=== PATIENT | male | born 1950 | race African-American/Black ===

== ENCOUNTER 2018-03-21 20:29 | Inpatient (IN) | payer MEDICARE, MEDICAID ==
[~2018-03-21] VITALS: Ht 177.8 cm; Wt 86.5 kg
[~2018-03-21 20:29] MED LIST: AMLO10TA12 PO; CYCL1TAB18 PO; GABA-339 PO; HYDR-4072 PO; IPRIH IN; LACT10SO66 PO; LEVO500T21 PO; LISI10TA6 PO; METO25TA62 PO; NIC21P TOP; PANT40TA2 PO
[2018-03-21 21:35] LABS: Urine WBC None Seen /hpf (0 - 3)
[2018-03-21 21:51] LABS: Urine Bacteria FEW /hpf (None Seen); Urine Blood Negative /uL (Negative); Urine Specific Gravity 1.004 (1.001-1.035)
[2018-03-21 22:05] LABS: Basophils # (auto) 0.1 uL; Eosinophils # (auto) 0 uL; Hemoglobin 11.9 g/dL (13.5-17.5); Nucleated Red Blood Cells % 0.2 %
[2018-03-21 22:07] LABS: Basophils % (auto) 2.7 % (0.0-2.0); Eosinophils % (auto) 1.1 % (0.0-7.0); Hematocrit 33.9 % (41.0-53.0); Lymphocytes % (auto) 24.9 % (10.0-50.0); Mean Corpuscular Hemoglobin 38.2 pg (28.0-32.0); Mean Corpuscular Hgb Conc. 35.1 g/dL (32.0-36.0); Monocytes # (auto) 0.3 uL; Monocytes % (auto) 7.8 % (0.0-12.0); Neutrophils # (auto) 2.5 uL; Neutrophils % (auto) 63.5 % (37.0-80.0); Platelet Count (auto) 148 10^3/uL (140-450); Red Blood Cells 3.11 10^6/uL (4.5-5.90); Red Cell Distribution Width 16.9 % (11.8-14.3); White Blood Cell 3.9 10^3/uL (4.4-10.8)
[2018-03-21] MEDS ORDERED: D5W/SOD CHL 0.45% 1,000 ML IV ONE (22:30)
[2018-03-21] MEDS ORDERED: DEXTROSE (50%) 50ML SYRG IV ONE (22:30)
[2018-03-21 23:04] LABS: Amphetamine Screen, Urine NEGATIVE (NEGATIVE); Barbiturate Scree,Urine NEGATIVE (NEGATIVE); Benzodiazephine Screen, Urine NEGATIVE (NEGATIVE); Cannabinoid Screen, Urine POSITIVE (NEGATIVE); Cocaine Screen, Urine NEGATIVE (NEGATIVE); Opiate Scree,Urine NEGATIVE (NEGATIVE); Phencyclidine Screen, Urine NEGATIVE (NEGATIVE)
[2018-03-21 23:26] LABS: Albumin 1.8 g/dL (3.4-5.0); BUN/Creatinine Ratio 6.9; Calcium 7.2 mg/dL (8.5-10.1)
[2018-03-21 23:29] LABS: Bilirubin, Total 1.5 mg/dL (0.2-1.0); Total Protein 7.1 g/dL (6.4-8.2)
[2018-03-22] MEDS ORDERED: DEXTROSE (50%) 50ML SYRG IV ONE (01:45)
[2018-03-22] MEDS ORDERED: MAGNESIUM SULFATE 1GM/100ML 100 ML IV ONE (02:15)
[2018-03-22] MEDS ORDERED: THIAMINE 100mg/ml INJ (200mg/2ml VIAL) IV ONE (02:15)
[2018-03-22] MEDS ORDERED: MVI in SODIUM CHLORIDE 0.9% 1,010 ML ONE (02:17)
[2018-03-22] MEDS ORDERED: D5W/SOD CHLO 0.9% 1,000 ML IV ONE (02:30)
[2018-03-22] MEDS ORDERED: THIAMINE HCL 100 MG TAB PO ONE (02:30)
[2018-03-22] MEDS ORDERED: DEXTROSE 10% 1,000 ML IV ONE (03:00)
[2018-03-22] MEDS ORDERED: TEMAZEPAM 15 MG CAP PO PRN (03:15)
[2018-03-22] MEDS ORDERED: ACETAMINOPHEN 500 MG TAB PO PRN (03:15)
[2018-03-22] MEDS ORDERED: ALBUTEROL SULF 2.5 MG/0.5ML(0.5%) NEB SOLN NEB PRN (03:15)
[2018-03-22] MEDS ORDERED: IPRATROPIUM BROM 0.5 MG/2.5ML INH SOL NEB PRN (03:15)
[2018-03-22] MEDS ORDERED: ONDANSETRON HCL 4 MG/2 ML VIAL IV PRN (03:15)
[2018-03-22 05:22] LABS: Basophils # (auto) 0 uL; Eosinophils # (auto) 0.1 uL; Hemoglobin 11.6 g/dL (13.5-17.5); Lymphocytes # (auto) 1.4 uL; Mean Corpuscular Volume 108.6 fL (80.0-100.0); Monocytes # (auto) 0.5 uL
[2018-03-22 05:24] LABS: Basophils % (auto) 0.8 % (0.0-2.0); Eosinophils % (auto) 1.9 % (0.0-7.0); Lymphocytes % (auto) 32.7 % (10.0-50.0); Mean Corpuscular Hemoglobin 38.2 pg (28.0-32.0); Mean Corpuscular Hgb Conc. 35.1 g/dL (32.0-36.0); Monocytes % (auto) 12.5 % (0.0-12.0); Neutrophils # (auto) 2.2 uL; Neutrophils % (auto) 52.1 % (37.0-80.0); Nucleated Red Blood Cells % 0.3 %; Platelet Count (auto) 82 10^3/uL (140-450); Red Blood Cells 3.03 10^6/uL (4.5-5.90); Red Cell Distribution Width 16.4 % (11.8-14.3); White Blood Cell 4.2 10^3/uL (4.4-10.8)
[2018-03-22 05:39] LABS: Calcium 7.5 mg/dL (8.5-10.1); Potassium 3.8 mmol/L (3.5-5.1)
[2018-03-22 05:43] LABS: BUN/Creatinine Ratio 9.8
[2018-03-22] MEDS: GABAPENTIN 400 MG CAP PO SCH ×3 (06:15→21:54)
[2018-03-22] MEDS: HYDROcodone-ACET 5/325MG TAB PO PRN ×3 (06:15→21:55)
--- NOTE | 2018-03-22 07:10 | NUR ---
PT. ASSESSED FOR PRN. MN. TX., NO RESP. DISTRESS OR SOB NOTED. PT. IS RESTING ,BS. ARE CLEAR,HR=82,RR=20,SP02=99% ON RA. PRN. TX. NOT INDICATED AT THIS TIME. PT. INSTRUCTED TO CALL IF NEEDED.
[2018-03-22] MEDS: NICOTINE 14 MG/24HR TOPICAL PATCH TD SCH (10:00)
[2018-03-22] MEDS: PANTOPRAZOLE 40 MG TAB PO SCH (10:12)
[2018-03-22] MEDS: amLODIPine BESYLATE 5 MG TAB PO SCH (10:13)
[2018-03-22] MEDS: LISINOPRIL 10 MG TAB PO SCH (10:13)
[2018-03-22] MEDS: METOPROLOL SUCCINATE XL 50 MG TAB PO SCH (10:14)
[2018-03-22] MEDS ORDERED: MULTIPLE VITAMIN IV SCH (12:00)
[2018-03-22] MEDS ORDERED: MAGNESIUM SULF IV SCH (12:00)
[2018-03-22] MEDS ORDERED: D5W 5% IV SCH (12:00)
[2018-03-22] MEDS ORDERED: MULTIPLE VITAMINS W/ MINERALS TAB PO ONE (15:30)
[2018-03-22] MEDS: ACCU-CHEK COMFORT CURVE STRIP VI SCH ×2 (17:50→22:56)
--- NOTE | 2018-03-22 18:38 | NUR ---
MS admit from ER GALI OSHEA admitted to [facility] unit after SBAR received. Patient oriented to Abi Rust, primary RN, unit, room, bed, and unit policies regarding patient care and visiting hours. weighed by bedscale and encouraged to call if they need something. All questions and concerns addressed, patient verbalized understanding. Note:
--- NOTE | 2018-03-22 20:15 | NUR ---
Opening Shift Note: A&Ox4, resting in bed. Room air, pain 10/10 generalized, and ambulates at baseline with a cane; currently SBA without an assistive device. Bed locked in lowest position, side rails up x3, and call light within reach. IV 20 g in right forearm IID inserted on 03/22/18. Skin intact; discoloration to chest and bilateral feel flaky and dry. POC discussed and questions answered. Will continue to round prn.
[2018-03-22 20:43] VITALS: BP 144/76
[2018-03-22 22:00] VITALS: BP 104/62
[2018-03-23] MEDS: ACCU-CHEK COMFORT CURVE STRIP VI SCH ×4 (02:00→21:02)
[2018-03-23] MEDS: HYDROcodone-ACET 5/325MG TAB PO PRN ×5 (02:38→21:01)
[2018-03-23 05:11] VITALS: BP 116/69
[2018-03-23] MEDS: GABAPENTIN 400 MG CAP PO SCH ×3 (06:02→21:02)
[2018-03-23 06:35] LABS: Basophils # (auto) 0 uL; Eosinophils # (auto) 0.1 uL; Monocytes # (auto) 0.4 uL; Neutrophils # (auto) 1.9 uL; Red Blood Cells 3.14 10^6/uL (4.5-5.90)
[2018-03-23 06:38] LABS: Basophils % (auto) 1.1 % (0.0-2.0); Eosinophils % (auto) 2.8 % (0.0-7.0); Hematocrit 34.3 % (41.0-53.0); Hemoglobin 11.8 g/dL (13.5-17.5); Lymphocytes # (auto) 1.3 uL; Mean Corpuscular Hemoglobin 37.6 pg (28.0-32.0); Mean Corpuscular Hgb Conc. 34.5 g/dL (32.0-36.0); Mean Corpuscular Volume 109.1 fL (80.0-100.0); Monocytes % (auto) 11.6 % (0.0-12.0); Neutrophils % (auto) 50.5 % (37.0-80.0); Nucleated Red Blood Cells % 0.3 %; Platelet Count (auto) 94 10^3/uL (140-450); Red Cell Distribution Width 16.8 % (11.8-14.3); White Blood Cell 3.8 10^3/uL (4.4-10.8)
[2018-03-23 06:50] LABS: BUN/Creatinine Ratio 10.1; Calcium 7.4 mg/dL (8.5-10.1); Potassium 4.2 mmol/L (3.5-5.1)
--- NOTE | 2018-03-23 08:15 | NUR ---
Update: A&Ox4, resting in bed. Room air, pain level 8/-10 chronic generalized pain, and ambulates SBA. Bed locked in lowest position, side rails up x2, and call light within reach. IV 20 g in right forearm IID inserted on 03/22/18. Skin intact: redness to chest and dry flaky feet. POC discussed and questions answered. Will continue to round prn.
--- NOTE | 2018-03-23 09:33 | NUR ---
Respiratory note: PT ASSESSED FOR PRN MN TX. HR 60, RR 14, POX 100% ON RA. BREATH SOUNDS CLEAR. NO RESPIRATORY DISTRESS NOTED. PRN NOT INDICATED, NO TX GIVEN AT THIS TIME.
[2018-03-23 10:02] VITALS: BP 121/71
[2018-03-23] MEDS: MULTIPLE VITAMINS W/ MINERALS TAB PO SCH (10:29)
[2018-03-23] MEDS: THIAMINE HCL 100 MG TAB PO SCH (10:29)
[2018-03-23] MEDS: LISINOPRIL 10 MG TAB PO SCH (10:30)
[2018-03-23] MEDS: amLODIPine BESYLATE 5 MG TAB PO SCH (10:30)
[2018-03-23] MEDS: PANTOPRAZOLE 40 MG TAB PO SCH (10:30)
[2018-03-23] MEDS: METOPROLOL SUCCINATE XL 50 MG TAB PO SCH (10:30)
[2018-03-23] MEDS: NICOTINE 14 MG/24HR TOPICAL PATCH TD SCH (10:31)
--- NOTE | 2018-03-23 12:45 | NUR ---
Page sent to PT to assist patient with ambulation per physician.
--- NOTE | 2018-03-23 13:00 | NUR ---
Per Dr. Man, patient ACCU check will change from Q4H to Q6H with no insulin coverage related to hypoglycemia.
--- NOTE | 2018-03-23 14:48 | NUR ---
Received report from HARMONY Prajapati and assumed care of patient.
[2018-03-23 15:17] VITALS: BP 105/60
[2018-03-23 17:00] VITALS: BP 134/70
--- NOTE | 2018-03-23 19:30 | NUR ---
Seen visited by family. Instructed patient's son Maury to call us back re: patient's medication list and verbalized understanding. Call back number provided to him.
--- NOTE | 2018-03-23 21:01 | NUR ---
Pain assessment: Patient called c/o pain in his bilateral knees. Pain scale 9/10. Will medicate patient for pain.
[2018-03-23 22:00] VITALS: BP 120/47
--- NOTE | 2018-03-23 22:01 | NUR ---
Pain re-assessment: Patient stated pain slightly relieved in his bilateral knees. Will continue to monitor.
--- NOTE | 2018-03-24 00:01 | NUR ---
PT SEEN RESTING IN BED ON RA, SPO2 100, BS CLEAR, NO SOB, NO PRN NEB TX INDICATED AT THIS TIME.
[2018-03-24] MEDS: ACCU-CHEK COMFORT CURVE STRIP VI SCH ×4 (03:34→18:00)
[2018-03-24 05:00] VITALS: BP 91/50
--- NOTE | 2018-03-24 07:24 | NUR ---
Respiratory note: PT ASSESSED FOR PRN TX. HR 64, RR 14, POX 98% ON RA. BREATH SOUNDS CLEAR DIMINISHED BILATERALLY. NO RESPIRATORY DISTRESS NOTED. PRN TX NOT GIVEN, NOT INDICATED AT THIS TIME.
[2018-03-24] MEDS: GABAPENTIN 400 MG CAP PO SCH ×2 (07:36→14:00)
--- NOTE | 2018-03-24 08:00 | NUR ---
RECEIVED PATIENT ALERT AND ORIENTED, NOT IN DISTRESS, RESTING AND SLEEPING ON BED, HEAD OF BED ELEVATED, BED ON LOW POSITION, RAILS UP X2, CALL LIGHT ON REACH, WILL CONTINUE MONITORING.
[2018-03-24 09:00] VITALS: BP 125/72
[2018-03-24] MEDS: LISINOPRIL 10 MG TAB PO SCH (10:27)
[2018-03-24] MEDS: PANTOPRAZOLE 40 MG TAB PO SCH (10:28)
[2018-03-24] MEDS: THIAMINE HCL 100 MG TAB PO SCH (10:28)
[2018-03-24] MEDS: amLODIPine BESYLATE 5 MG TAB PO SCH (10:28)
[2018-03-24] MEDS: METOPROLOL SUCCINATE XL 50 MG TAB PO SCH (10:29)
[2018-03-24] MEDS: NICOTINE 14 MG/24HR TOPICAL PATCH TD SCH (10:29)
[2018-03-24] MEDS: MULTIPLE VITAMINS W/ MINERALS TAB PO SCH (10:29)
--- NOTE | 2018-03-24 11:40 | NUR ---
NOT IN DISTRESS, RESTING ON BED, REPORT WAS GIVEN TO GOSIA ANTUNEZ.
--- NOTE | 2018-03-24 11:42 | NUR ---
Received Report Received report from Baron ANTUNEZ. Assumed care of patient, awake and alert resting in bed. Patient is 2 L NC with even and unlabored respirations. No S/S of distress/SOB or pain at this time. Bed is in lowest position, wheels are locked, side rails up x2, and call light is within reach. Instructed on POC and to call for assist PRN, will continue to monitor for changes Q1hr and PRN.
--- NOTE | 2018-03-24 12:15 | NUR ---
DR. MARIO AT BEDSIDE AT BEDSIDE EVALUATING PATIENT. D/C ORDER RECEIVED. WILL CALL SON TO INFORM PATIENT NEEDS TO BE PICKED UP. WILL CONTINUE TO MONITOR Q1H AND PRN.
--- NOTE | 2018-03-24 12:40 | NUR ---
CALLED PATIENT'S SON CALLED AND SPOKE WITH PATIENT'S SON, KATE. INFORMED HIM THAT PATIENT IS DISCHARGE. PER SON STATED HE WILL BE UP HERE IN A COUPLE OF HOURS TO PICK HIM UP.
[2018-03-24 12:48] VITALS: BP 121/74
[2018-03-24 15:41] VITALS: BP 121/74
--- NOTE | 2018-03-24 16:40 | NUR ---
CALLED SON AGAIN CALEB-KATE CALLED AGAIN RE: PATIENT D/C'D. PER SON WILL BE HERE WITHIN THE HOUR. WILL CONTINUE TO MONITOR.
--- NOTE | 2018-03-24 18:30 | NUR ---
Patient Discharged Discharge instructions given as ordered. Encourage to follow up with PMD as instructed. All questions and concerns addressed. Patient verbalized understanding. Medication reconciliation form completed and copy given to patient. IV removed with catheter intact, pressure dressing applied, ern catheter removed. Patient taken to vehicle via wheelchair with all personal belongings, accompanied by staff and family member. No distress noted at time of departure.
== END 2018-03-24 18:30 | disposition home or self-care (01) | DRG 420 ==
LOC: ER 20:29 → EDBD 20:29 → TELE 03-22 03:11 → WEST WING 03-22 18:38
PROVIDERS: ADMIT Nurse Practitioner Family; ATTEND Internal Medicine
DX: E11.649 Type 2 diabetes mellitus with hypoglycemia without coma (principal); G93.40 Encephalopathy, unspecified; E44.0 Moderate protein-calorie malnutrition; D69.6 Thrombocytopenia, unspecified; J44.9 Chronic obstructive pulmonary disease, unspecified; F10.129 Alcohol abuse with intoxication, unspecified; I10 Essential (primary) hypertension; E78.00 Pure hypercholesterolemia, unspecified; E78.5 Hyperlipidemia, unspecified; F12.10 Cannabis abuse, uncomplicated; F17.210 Nicotine dependence, cigarettes, uncomplicated; K74.60 Unspecified cirrhosis of liver; Z98.49 Cataract extraction status, unspecified eye; Z79.899 Other long term (current) drug therapy; Z68.27 Body mass index [BMI] 27.0-27.9, adult
CPT/HCPCS: 36415; 80048; 80053; 80307; 80320; 81001; 82962; 85025; 96361; 96365; 96375; 96376; G0378; J7042

== ENCOUNTER 2018-07-04 18:40 | Inpatient (IN) | payer MEDICARE, MEDICAID ==
[~2018-07-04] VITALS: Ht 177.8 cm
[2018-07-04] MEDS ORDERED: DEXTROSE 50% SYRINGE 50 ML IV ONE (19:49)
[2018-07-04] MEDS ORDERED: DEXTROSE 10% 1,000 ML IV ONE (20:00)
[2018-07-04] MEDS ORDERED: DEXTROSE (50%) 50ML SYRG IV ONE (20:00)
[2018-07-04 21:00] LABS: Urine Bacteria FEW /hpf (None Seen); Urine Blood Negative /uL (Negative); Urine Mucus FEW (None Seen); Urine Specific Gravity 1.009 (1.001-1.035); Urine WBC 17 /hpf (0 - 3)
[2018-07-04 22:07] LABS: Eosinophils # (auto) 0 uL; Hemoglobin 12.6 g/dL (13.5-17.5); Lymphocytes # (auto) 0.7 uL; Monocytes # (auto) 0.4 uL; Neutrophils # (auto) 2.4 uL; Nucleated Red Blood Cells % 0.1 %; White Blood Cell 3.5 10^3/uL (4.4-10.8)
[2018-07-04 22:11] LABS: Basophils # (auto) 0 uL; Basophils % (auto) 0.6 % (0.0-2.0); Eosinophils % (auto) 1.2 % (0.0-7.0); Hematocrit 37.2 % (41.0-53.0); Lymphocytes % (auto) 20.7 % (10.0-50.0); Mean Corpuscular Hemoglobin 36.1 pg (28.0-32.0); Mean Corpuscular Volume 106.1 fL (80.0-100.0); Monocytes % (auto) 11.1 % (0.0-12.0); Neutrophils % (auto) 66.4 % (37.0-80.0); Platelet Count (auto) 98 10^3/uL (140-450); Red Cell Distribution Width 17.6 % (11.8-14.3)
[2018-07-04 22:24] LABS: Potassium 3.6 mmol/L (3.5-5.1)
[2018-07-04 22:42] LABS: BUN/Creatinine Ratio 10.4
[2018-07-04 22:43] LABS: Albumin 2.2 g/dL (3.4-5.0); Calcium 7.8 mg/dL (8.5-10.1); Total Protein 8.3 g/dL (6.4-8.2)
[2018-07-04] MEDS: DEXTROSE 10% 1,000 ML IV SCH (23:03)
[2018-07-05] VITALS (7 sets, daily range): BP systolic 101–140; BP diastolic 52–72
[2018-07-05] MEDS ORDERED: NITROGLYCERIN 0.4 MG SL TAB SL PRN (00:30)
[2018-07-05] MEDS ORDERED: ONDANSETRON HCL 4 MG/2 ML VIAL IV PRN (00:30)
[2018-07-05] MEDS ORDERED: MORPHINE SULF INJ 2 MG/ML SYRINGE 1ML IV PRN ×2 (00:30)
[2018-07-05] MEDS ORDERED: IPRATROPIUM BROM 0.5 MG/2.5ML INH SOL NEB PRN (00:30)
[2018-07-05] MEDS ORDERED: ALBUTEROL SULF 2.5 MG/0.5ML(0.5%) NEB SOLN NEB PRN (00:30)
[2018-07-05] MEDS: DEXTROSE 10% 1,000 ML IV SCH ×4 (00:59→14:09)
--- NOTE | 2018-07-05 01:25 | NUR ---
Admit to [facility] GALI OSHEA admitted to [facility] via gurney on cardiac cath lab manager, and portable 02. Patient transferred to bed, connected to unit monitoring and oxygen, and weighed by bedscale. Patient oriented to Dana Ren, primary RN, unit, room, bed, and unit policies regarding patient care and visiting hours. All questions and concerns addressed, patient verbalized understanding. Pt educated on blood sugar being checked q2hr per MD order. No S/S of distress at this time. Attempted to locate , ER stated she was in the lobby and security would find her and bring her to floor. never arrived, pt suspects she was able to get a ride home.
[2018-07-05] MEDS: ACCU-CHEK COMFORT CURVE STRIP VI SCH ×8 (02:00→21:32)
--- NOTE | 2018-07-05 02:00 | NUR ---
Glucose 66, pt stable.
--- NOTE | 2018-07-05 04:00 | NUR ---
Glucose 98, stable.
--- NOTE | 2018-07-05 04:08 | NUR ---
Glucose 98, pt stable.
[2018-07-05] MEDS ORDERED: amLODIPine BESYLATE 5 MG TAB PO ONE (05:00)
[2018-07-05] MEDS ORDERED: LISINOPRIL 10 MG TAB PO ONE (05:00)
[2018-07-05] MEDS ORDERED: METOPROLOL SUCCINATE XL 50 MG TAB PO ONE (05:00)
[2018-07-05] MEDS ORDERED: CYCLOBENZAPRINE HCL 10 MG TAB PO ONE (05:00)
[2018-07-05] MEDS: GABAPENTIN 400 MG CAP PO SCH ×3 (06:00→21:24)
--- NOTE | 2018-07-05 06:00 | NUR ---
Glucose 95, stable.
--- NOTE | 2018-07-05 07:58 | NUR ---
Pt remains stable. Requests big breakfast of 2 bowls of cream of wheat, 3 pieces of toast, 1 fruit bowl, 1 coffee, and 1 milk. Message left on dietary phone. Report given to AM shift, care endorsed.
--- NOTE | 2018-07-05 08:00 | NUR ---
Opening Shift Note Assumed care of patient, awake and alert. No S/S of distress/SOB or pain. Instructed on POC and to call for assist PRN, will continue to monitor for changes Q1hr and PRN.
--- NOTE | 2018-07-05 08:30 | NUR ---
Blood sugar 96. Breakfast tray provided.
[2018-07-05] MEDS: cefTRIAXone 1GM/50ML D5W 50 ML IV SCH (08:45)
--- NOTE | 2018-07-05 09:00 | NUR ---
IV insertion IV access obtained, via clean sterile technique by inserting 20 gauge catheter at left wrist after 1 attempt. IV secured properly. No trauma to site. Patient tolerated procedure well.
[2018-07-05] MEDS: MULTIPLE VITAMINS W/ MINERALS TAB PO SCH (09:35)
[2018-07-05] MEDS: PANTOPRAZOLE 40 MG TAB PO SCH (09:37)
[2018-07-05] MEDS: HYDROcodone-ACET 10/325MG TAB PO PRN ×2 (09:38→21:25)
[2018-07-05] MEDS: amLODIPine BESYLATE 5 MG TAB PO SCH (09:38)
[2018-07-05] MEDS: FOLIC ACID 1 MG TAB PO SCH (09:39)
[2018-07-05] MEDS: METOPROLOL SUCCINATE XL 50 MG TAB PO SCH (09:40)
[2018-07-05] MEDS: THIAMINE HCL 100 MG TAB PO SCH (09:40)
[2018-07-05] MEDS: LISINOPRIL 10 MG TAB PO SCH (09:41)
[2018-07-05] MEDS: AZITHROMYCIN 500MG/ 250ML 250 ML IV SCH (09:41)
[2018-07-05] MEDS: CYCLOBENZAPRINE HCL 10 MG TAB PO SCH ×2 (09:43→21:25)
--- NOTE | 2018-07-05 10:00 | NUR ---
Patient had 100% of breakfast. No sign of hypoglycemia noted, sitting on the bed and watching TV.
--- NOTE | 2018-07-05 10:05 | NUR ---
PT ASSESSED FOR PRN MED TX, PT IN NO DISTRESS WITH SPO2 97%, HR 70, RR 20 ON RA. NO INDICATION FOR PRN TX. WILL CONTINUE TO MONITOR PT.
--- NOTE | 2018-07-05 12:00 | NUR ---
Blood sugar 203, continue IV as order. Lunch tray provided. Will notify MD to make aware patient's condition.
--- NOTE | 2018-07-05 13:48 | NUR ---
Dr. Hamilton at the bedside, plan of care discussed with patient. MD talk to patient that do not take Glipizide due to frequency admission because of hypoglycemia. Patient made aware, discard glipizide from patient's medication per Dr. Hamilton. Received orders for decrease IV (10%dextose) to 50ml/hr, change ACCU check to q 4 hrs and transfer to Telemetry.
--- NOTE | 2018-07-05 14:13 | NUR ---
Blood sugar 147, no sign of hypoglycemia, called Charge nurse to make aware about transfer order, patient made aware. Will continue to monitor and care.
--- NOTE | 2018-07-05 16:00 | NUR ---
Family at bedside, they made aware that patient will transfer to Telemetry when we have a bed available. Plan of care discussed with son (Maury) at bedside, he verbalized understanding, he also made aware that Dr. Hamilton mention about do not let patient taking Glipizide at home, his hemoglobin A1C 4.6.
--- NOTE | 2018-07-05 18:20 | NUR ---
Patient sitting up on the bed for dinner, will continue to monitor, blood sugar at 18.00 pm =122, no sign of hypoglycemia noted.
--- NOTE | 2018-07-05 18:41 | NUR ---
Patient finished with Dinner (100%). No complaining of pain or SOB noted. HR 65, RR 18, O2 saturation 99% with room air. Will continue IV as order and check blood sugar level every 4 hours as order.
--- NOTE | 2018-07-05 21:30 | NUR ---
Received SBAR from Ambar ANTUNEZ in [facility], patient is a [facility] transfer to telemetry. He arrived via wheelchair accompanied by a RN. No S/S of distress, SOB, or pain. Per SBAR patient just received a norco for pain prior to transfer. He is on telemetry, box #22, currently running sinus rhythm. Bed is in lowest position, side rails up x2, brakes are locked, call light is within reach. Dextrose 10% is running at 50 mls/ hr into the right hand IV. Explained to patient plan of care for this evening, all questions and concerns answered. Instructed patient to call as needed and will round hourly/prn.
--- NOTE | 2018-07-05 21:36 | NUR ---
Report given to Chichi ANTUNEZ. Pt transferred via WC and on tele box by timber hewerRN. Bains. Glucose 136, norco given per request. No S/S of distress. Attempted to call son to notify of transfer but voicemail was full. Care endorsed.
--- NOTE | 2018-07-05 22:22 | NUR ---
Respiratory note: PT SEEN AND ASSESSED FOR PRN MED NEB TX AT 2222. TX NOT INDICATED AT THIS TIME. PT DISPLAYING NO SIGNS OF DISTRESS AT THIS TIME. SHE WAS SLEEPING WHEN ENTERING THE ROOM. HR 66 RR 16 POX 96% ON ROOM AIR.
[2018-07-06] MEDS: ACCU-CHEK COMFORT CURVE STRIP VI SCH ×4 (01:38→14:48)
[2018-07-06 04:54] VITALS: BP 102/59
[2018-07-06] MEDS: GABAPENTIN 400 MG CAP PO SCH ×2 (06:24→14:48)
[2018-07-06 06:47] LABS: Magnesium 1.9 mg/dL (1.6-2.6); Potassium 3.9 mmol/L (3.5-5.1)
[2018-07-06 06:53] LABS: BUN/Creatinine Ratio 11.4; Calcium 7.5 mg/dL (8.5-10.1)
[2018-07-06 07:15] LABS: Eosinophils # (auto) 0.1 uL; Hemoglobin 12.2 g/dL (13.5-17.5); Nucleated Red Blood Cells % 0.3 %; Platelet Count (auto) 92 10^3/uL (140-450); White Blood Cell 3.6 10^3/uL (4.4-10.8)
[2018-07-06 07:18] LABS: Basophils # (auto) 0.1 uL; Basophils % (auto) 1.5 % (0.0-2.0); Hematocrit 35.3 % (41.0-53.0); Lymphocytes # (auto) 1.2 uL; Lymphocytes % (auto) 33.4 % (10.0-50.0); Mean Corpuscular Hemoglobin 36.8 pg (28.0-32.0); Mean Corpuscular Hgb Conc. 34.5 g/dL (32.0-36.0); Mean Corpuscular Volume 106.5 fL (80.0-100.0); Monocytes # (auto) 0.4 uL; Monocytes % (auto) 9.9 % (0.0-12.0); Neutrophils # (auto) 1.9 uL; Neutrophils % (auto) 51.2 % (37.0-80.0); Red Blood Cells 3.31 10^6/uL (4.5-5.90); Red Cell Distribution Width 17.2 % (11.8-14.3)
--- NOTE | 2018-07-06 07:43 | NUR ---
Endorsed care to dayshift HARMONY Mooney.
--- NOTE | 2018-07-06 08:15 | NUR ---
MORNING ROUNDS Patient called RN to room stating IV came out. IV catheter lying on bed intact. Blood noted on bedding and patients hand. IV site free of redness and swelling. Complete linen change provided and patient given hygiene supplies and hospital gown. Patient returned to bed, bed in lowest position, bed alarm on, call light in reach.
[2018-07-06 08:31] VITALS: BP 117/89
[2018-07-06] MEDS: cefTRIAXone 1GM/50ML D5W 50 ML IV SCH (09:06)
--- NOTE | 2018-07-06 10:41 | NUR ---
Respiratory note: ASSESSED PT FOR PRN MEDNEB TX. HR 71, RR 18, POX 96% ON ROOM AIR. BREATH SOUNDS CLEAR/DIMINISHED THROUGHOUT. PT STATED HIS BREATHING IS FEELING FINE AND NOT FEELING ANY SOB TODAY. NO S/S OF RESPIRATORY DISTRESS. MEDNEB TX NOT INDICATED AT THIS TIME. ADVISED PT TO CALL FOR RT IF FEELING SOB.
[2018-07-06] MEDS: METOPROLOL SUCCINATE XL 50 MG TAB PO SCH (11:33)
[2018-07-06] MEDS: PANTOPRAZOLE 40 MG TAB PO SCH (11:34)
[2018-07-06] MEDS: amLODIPine BESYLATE 5 MG TAB PO SCH (11:34)
[2018-07-06] MEDS: CYCLOBENZAPRINE HCL 10 MG TAB PO SCH (11:35)
[2018-07-06] MEDS: MULTIPLE VITAMINS W/ MINERALS TAB PO SCH (11:35)
[2018-07-06] MEDS: LISINOPRIL 10 MG TAB PO SCH (11:35)
[2018-07-06] MEDS: FOLIC ACID 1 MG TAB PO SCH (11:36)
[2018-07-06] MEDS: AZITHROMYCIN 500MG/ 250ML 250 ML IV SCH (11:36)
[2018-07-06] MEDS: THIAMINE HCL 100 MG TAB PO SCH (11:37)
[2018-07-06] MEDS: DEXTROSE 10% 1,000 ML IV SCH (11:47)
--- NOTE | 2018-07-06 12:20 | NUR ---
ROUNDING Dr Hamilton rounding on patient with primary RN at bedside. MD provided education on discharge needs including medication management and had patient verbalize/repeat back teaching.
[2018-07-06 12:30] VITALS: BP 124/72
[2018-07-06 14:15] VITALS: BP 117/89
[2018-07-06 14:36] VITALS: BP 117/89
--- NOTE | 2018-07-06 16:00 | NUR ---
Discharge instructions given as ordered. Encourage to follow up with PMD as instructed. All questions and concerns addressed. Patient verbalized understanding. Medication reconciliation form completed and copy given to patient. Home medications held in Pharmacy returned to patient. IV removed with catheter intact, pressure dressing applied. Telemetry unit returned to ICU. Patient taken to vehicle via wheelchair with all personal belongings, accompanied by staff and family member. No distress noted at time of departure.
== END 2018-07-06 15:56 | disposition home or self-care (01) | DRG 812 ==
LOC: EDUNIT# 18:40 → EDBD 18:40 → ER 18:42 → TELE 07-05 00:34 → DOU IN ICU 07-05 01:21 → TELE-WESTW 07-05 21:30
PROVIDERS: ADMIT Nurse Practitioner Acute Care; ATTEND Family Medicine
DX: T50.904A Poisoning by unspecified drugs, medicaments and biological substances, undetermined, initial encounter (principal); E44.0 Moderate protein-calorie malnutrition; J18.1 Lobar pneumonia, unspecified organism; I11.0 Hypertensive heart disease with heart failure; I50.9 Heart failure, unspecified; N39.0 Urinary tract infection, site not specified; J44.9 Chronic obstructive pulmonary disease, unspecified; G62.9 Polyneuropathy, unspecified; F41.9 Anxiety disorder, unspecified; E16.2 Hypoglycemia, unspecified; D53.9 Nutritional anemia, unspecified; F17.210 Nicotine dependence, cigarettes, uncomplicated; K21.9 Gastro-esophageal reflux disease without esophagitis; Z80.6 Family history of leukemia; Z87.11 Personal history of peptic ulcer disease; Z91.19 Patient's noncompliance with other medical treatment and regimen
CPT/HCPCS: 36415; 71045; 80048; 80053; 80061; 81001; 82962; 83036; 83735; 83880; 84443; 85025; 87081; 93005; 93306; 94761; 96361; 96365; 96375; G0378; J0696

== ENCOUNTER 2018-10-15 15:47 | Inpatient (IN) | payer MEDICARE, MEDICAID ==
[~2018-10-15] VITALS: Ht 177.8 cm; Wt 77.8 kg
[~2018-10-15 15:47] MED LIST changes: -AMLO10TA12 PO; +AMLO10TA13 PO; -LACT10SO66 PO; +LACT10SO70 PO
[2018-10-15 16:14] LABS: Eosinophils # (auto) 0 uL; Eosinophils % (auto) 0.1 % (0.0-7.0); Monocytes # (auto) 0.5 uL; Neutrophils # (auto) 2.7 uL; White Blood Cell 4.3 10^3/uL (4.4-10.8)
[2018-10-15 16:18] LABS: Basophils # (auto) 0.1 uL; Basophils % (auto) 1.4 % (0.0-2.0); Hematocrit 37.1 % (41.0-53.0); Hemoglobin 12.6 g/dL (13.5-17.5); Lymphocytes % (auto) 22.5 % (10.0-50.0); Mean Corpuscular Hemoglobin 36.9 pg (28.0-32.0); Mean Corpuscular Hgb Conc. 33.9 g/dL (32.0-36.0); Mean Corpuscular Volume 108.6 fL (80.0-100.0); Monocytes % (auto) 12.1 % (0.0-12.0); Neutrophils % (auto) 63.9 % (37.0-80.0); Nucleated Red Blood Cells % 0.8 %; Platelet Count (auto) 97 10^3/uL (140-450); Red Blood Cells 3.41 10^6/uL (4.5-5.90); Red Cell Distribution Width 17.4 % (11.8-14.3)
[2018-10-15] MEDS ORDERED: SODIUM CHLORIDE 0.9% 500 ML IVB ONE (16:28)
[2018-10-15] MEDS ORDERED: FAMOTIDINE (10MG/ML) 2ML VL IV ONE (16:30)
[2018-10-15] MEDS ORDERED: MORPHINE SULF INJ 2 MG/ML SYRINGE 1ML IV ONE (16:30)
[2018-10-15 16:31] LABS: Albumin 2.3 g/dL (3.4-5.0); BUN/Creatinine Ratio 21.1; Potassium 4.7 mmol/L (3.5-5.1)
[2018-10-15 16:34] LABS: Bilirubin, Total 5.1 mg/dL (0.2-1.0); Total Protein 8.9 g/dL (6.4-8.2)
[2018-10-15 16:56] LABS: INR 1.56 (0.9-1.15)
[2018-10-15] MEDS ORDERED: ONDANSETRON HCL 4 MG/2 ML VIAL IV ONE (17:30)
[2018-10-15] MEDS ORDERED: LEVOFLOXACIN 500MG 100 ML IV ONE (19:45)
[2018-10-15] MEDS ORDERED: traMADol HCL 50 MG TAB PO PRN (19:45)
[2018-10-15] MEDS ORDERED: THIAMINE 100mg/ml INJ (200mg/2ml VIAL) IV ONE (19:45)
[2018-10-15] MEDS ORDERED: MORPHINE SULF INJ 2 MG/ML SYRINGE 1ML IV PRN (19:45)
[2018-10-15] MEDS ORDERED: chlordiazePOXIDE HCL 25 MG CAP PO PRN (19:45)
[2018-10-15] MEDS ORDERED: PANTOPRAZOLE 40 MG/10 ML VIAL INJ IV ONE (19:45)
[2018-10-15] MEDS ORDERED: NITROGLYCERIN 0.4 MG SL TAB SL PRN (19:45)
[2018-10-15] MEDS ORDERED: LACTULOSE 20Gm/30ML SOLN PO ONE (19:45)
[2018-10-15] MEDS ORDERED: DEXTROSE (50%) 50ML SYRG IV PRN (19:45)
[2018-10-15 21:30] VITALS: BP 127/66
--- NOTE | 2018-10-15 21:30 | NUR ---
PATIENT ADMITTED TO UNIT Patient arrived to unit from ER. Patient is A&O X's 4 with no s/s of distress noted. Patient reports generalized body pain 8/10. He reports it mostly being his lower back and legs that go up to his knees. He reports this is chronic pain. Educated patient on POC and to use call light when in need of assistance and when in need of ambulating. Oriented patient to unit (call light/ phone/ visiting hours). Patient verbalized understanding. Bed is in lowest/locked position with side rails up X's 2 and call light is within reach of patient. Applied non-skid socks bilaterally and set bed alarm. Fall prevention in place. Urinal was provided to patient. Will continue care.
[2018-10-15] MEDS: InsuLIN REG 1unit/0.01ml Soln (100units/ml) SC SCH (22:00)
[2018-10-15] MEDS: SODIUM CHLORIDE 0.9% 1,000 ML IV SCH (23:05)
[2018-10-15] MEDS: PANTOPRAZOLE 40 MG TAB PO SCH (23:06)
[2018-10-15] MEDS: ACCU-CHEK COMFORT CURVE STRIP VI SCH (23:07)
[2018-10-15 23:18] VITALS: BP 127/66
[2018-10-15 23:35] VITALS: BP 100/50
[2018-10-15 23:54] VITALS: BP 105/60
[2018-10-16] VITALS (8 sets, daily range): BP systolic 99–140; BP diastolic 52–70
[2018-10-16] MEDS: LACTULOSE 20Gm/30ML SOLN PO SCH ×4 (00:29→18:13)
--- NOTE | 2018-10-16 00:34 | NUR ---
CALLED ER They made me aware that they do not have IV protonix at this time either.
[2018-10-16] MEDS: metroNIDAZOLE 500MG/100ML 100 ML IV SCH ×4 (00:45→21:28)
--- NOTE | 2018-10-16 00:48 | NUR ---
TRANSFUSION ENDED 1 UNIT OF PLASMA ADMINISTERED. PATIENT TOLERATED WELL. NO REACTIONS NOTED. PATIENT IS A&O X'S 4 WITH NO S/S OF DISTRESS. RESPIRATIONS ARE EVEN AND UNLABORED. HE IS RESTING COMFORTABLE. VITAL SIGNS DOCUMENTED. WILL CONTINUE CARE
[2018-10-16 00:55] LABS: Hematocrit 31.3 % (41.0-53.0); Hemoglobin 10.7 g/dL (13.5-17.5)
--- NOTE | 2018-10-16 01:11 | NUR ---
CALLED HOUSE SUP FOR PROTONIX IV She made me aware that we do not have this medication.
[2018-10-16] MEDS: PROMETHAZINE HCL 25 MG/ML 1ML IV PRN ×2 (01:55→06:13)
[2018-10-16] MEDS: MORPHINE SULF INJ 2 MG/ML SYRINGE 1ML IV PRN ×3 (01:55→21:26)
[2018-10-16] MEDS: SODIUM CHLORIDE 0.9% 1,000 ML IV SCH ×3 (03:36→15:45)
[2018-10-16] MEDS: InsuLIN REG 1unit/0.01ml Soln (100units/ml) SC SCH ×4 (06:22→21:33)
[2018-10-16] MEDS: ACCU-CHEK COMFORT CURVE STRIP VI SCH ×4 (06:23→21:33)
[2018-10-16 07:23] LABS: Albumin 1.9 g/dL (3.4-5.0); BUN/Creatinine Ratio 25.6; Calcium 7.4 mg/dL (8.5-10.1); Potassium 3.6 mmol/L (3.5-5.1)
[2018-10-16 07:25] LABS: INR 1.59 (0.9-1.15); Partial Thromboplastin Time 37.8 sec (23.64-32.05)
[2018-10-16 07:26] LABS: Bilirubin, Total 3.6 mg/dL (0.2-1.0); Total Protein 6.9 g/dL (6.4-8.2)
[2018-10-16 07:27] LABS: Hematocrit 27.8 % (41.0-53.0); Hemoglobin 9.6 g/dL (13.5-17.5); Mean Corpuscular Hemoglobin 37.5 pg (28.0-32.0); Mean Corpuscular Hgb Conc. 34.5 g/dL (32.0-36.0); Mean Corpuscular Volume 108.7 fL (80.0-100.0); Platelet Count (auto) 73 10^3/uL (140-450); Red Blood Cells 2.56 10^6/uL (4.5-5.90); Red Cell Distribution Width 17.3 % (11.8-14.3); White Blood Cell 4.4 10^3/uL (4.4-10.8)
[2018-10-16 07:32] LABS: Band Neutrophils % (manual) 0; Basophils % (manual) 0 (0.0-2.0); Blast Cells 0; Metamyelocytes % 0; Myelocytes % 0; Promyelocytes % 0; Reactive Lymphocytes 0
--- NOTE | 2018-10-16 07:45 | NUR ---
OPENING SHIFT NOTE PATIENT LAYING IN BED WITH EYES CLOSED CHEST RISE AND FALL VISUALIZED SHOWING NO S/S OF DISTRESS OR SOB. BED IN LOWEST LOCKED POSITION CALL LIGHT WITHIN REACH. BOARD UPDATED WILL CONTINUE TO MONITOR
[2018-10-16 08:06] LABS: Eosinophils % (manual) 1 (0-7); Lymphocytes % (manual) 39 (10.0-50.0); Monocytes % (manual) 11 (0-12)
[2018-10-16] MEDS: PANTOPRAZOLE 40 MG TAB PO SCH (09:21)
[2018-10-16] MEDS: THIAMINE 100mg/ml INJ (200mg/2ml VIAL) IV SCH (09:21)
[2018-10-16] MEDS ORDERED: LEVOFLOXACIN 500MG 100 ML IV SCH (10:00)
[2018-10-16] MEDS ORDERED: PHYTONADIONE (VIT K)10 MG/ML 1ML VIAL SUBCUT ONE (13:15)
[2018-10-16] MEDS ORDERED: OCTREOTIDE ACETATE 100 MCG in SODIUM CHL 0.9% 50 ML IV ONE (13:15)
[2018-10-16 13:57] LABS: Hematocrit 29.8 % (41.0-53.0); Hemoglobin 10.1 g/dL (13.5-17.5)
[2018-10-16] MEDS: OCTREOTIDE ACETATE 500 MCG in SODIUM CHL 0.9% 99 ML IV SCH (16:30)
[2018-10-16] MEDS: LEVOFLOXACIN 500MG 100 ML IV SCH (18:12)
[2018-10-16 18:44] LABS: Alcohol, Urine < 3.0 mg/dL (0-5); Amphetamine Screen, Urine NEGATIVE (NEGATIVE); Barbiturate Scree,Urine NEGATIVE (NEGATIVE); Benzodiazephine Screen, Urine NEGATIVE (NEGATIVE); Cannabinoid Screen, Urine NEGATIVE (NEGATIVE); Cocaine Screen, Urine NEGATIVE (NEGATIVE); Opiate Scree,Urine POSITIVE (NEGATIVE); Phencyclidine Screen, Urine NEGATIVE (NEGATIVE)
[2018-10-16 19:10] LABS: Urine Bacteria NONE SEEN /hpf (None Seen); Urine Blood Negative /uL (Negative); Urine Specific Gravity 1.024 (1.001-1.035); Urine WBC 2 /hpf (0 - 3)
--- NOTE | 2018-10-16 19:14 | NUR ---
report received from day rn poc reviewed
[2018-10-16] MEDS: rifAXIMin 550 MG TAB PO SCH (21:26)
[2018-10-17] VITALS (10 sets, daily range): BP systolic 114–148; BP diastolic 45–78
--- NOTE | 2018-10-17 | NUR ---
Received report from richard Santiago RN. Patient is alert and awake, no distress noted saturating at 92% on room air.
[2018-10-17] MEDS: LACTULOSE 20Gm/30ML SOLN PO SCH ×5 (00:07→23:24)
[2018-10-17] MEDS: OCTREOTIDE ACETATE 500 MCG in SODIUM CHL 0.9% 99 ML IV SCH ×3 (00:08→21:10)
--- NOTE | 2018-10-17 00:17 | NUR ---
report given to richard rn poc reviewed
--- NOTE | 2018-10-17 04:10 | NUR ---
Rounds Patient is resting in bed with eyes closed, no distress noted.
[2018-10-17 05:07] LABS: Basophils # (auto) 0 uL; Eosinophils # (auto) 0.1 uL; Hemoglobin 10.2 g/dL (13.5-17.5); Lymphocytes # (auto) 1.1 uL; Monocytes # (auto) 0.4 uL; Neutrophils # (auto) 1.4 uL
[2018-10-17 05:11] LABS: Basophils % (auto) 1.2 % (0.0-2.0); Lymphocytes % (auto) 37.4 % (10.0-50.0); Mean Corpuscular Hemoglobin 38.1 pg (28.0-32.0); Mean Corpuscular Hgb Conc. 35.2 g/dL (32.0-36.0); Mean Corpuscular Volume 108.4 fL (80.0-100.0); Monocytes % (auto) 12.2 % (0.0-12.0); Neutrophils % (auto) 46.2 % (37.0-80.0); Nucleated Red Blood Cells % 0.3 %; Platelet Count (auto) 68 10^3/uL (140-450); Red Blood Cells 2.67 10^6/uL (4.5-5.90); Red Cell Distribution Width 17.3 % (11.8-14.3)
[2018-10-17 05:23] LABS: INR 1.57 (0.9-1.15)
--- NOTE | 2018-10-17 05:30 | NUR ---
Rounds Complete bed changed and partial bath done. Patient is alert and oriented, no distress noted and patient denies pain.
[2018-10-17 05:31] LABS: BUN/Creatinine Ratio 15.1; Calcium 7.6 mg/dL (8.5-10.1); Magnesium 1.9 mg/dL (1.6-2.6); Potassium 3.6 mmol/L (3.5-5.1)
[2018-10-17] MEDS: SODIUM CHLORIDE 0.9% 1,000 ML IV SCH ×3 (05:37→14:57)
[2018-10-17] MEDS: metroNIDAZOLE 500MG/100ML 100 ML IV SCH ×3 (05:38→21:09)
[2018-10-17 05:44] LABS: Bilirubin, Total 3.1 mg/dL (0.2-1.0); Total Protein 6.7 g/dL (6.4-8.2)
[2018-10-17] MEDS: ACCU-CHEK COMFORT CURVE STRIP VI SCH ×4 (06:29→21:16)
[2018-10-17] MEDS: InsuLIN REG 1unit/0.01ml Soln (100units/ml) SC SCH ×4 (06:29→21:16)
--- NOTE | 2018-10-17 06:45 | NUR ---
Rounds Reminded patient of the [id number] status since midnight. Patient verbalized understanding.
--- NOTE | 2018-10-17 07:30 | NUR ---
Opening Shift Note Assumed care of patient, awake and alert. No S/S of distress/SOB or pain. Instructed on POC and to call for assist PRN, will continue to monitor for changes Q1hr and PRN. Bed in low and locked position, rails up x2, no-slip socks on, NPO status maintained.
--- NOTE | 2018-10-17 08:40 | NUR ---
PLASMA TRANSFUSION PER NOC SHIFT, PLASMA TO BE INFUSED THIS AM, READY AT BLOOD BANK, TRENDING VITALS CHARTED IN MEDITECH TRANSFUSION HISTORY. CONTINUE TO MONITOR.
[2018-10-17] MEDS ORDERED: LIDOCAINE VISCOUS 2% 15ML UD ONE (09:36)
[2018-10-17] MEDS ORDERED: diphenhdrAMINE HCL 50 MG/1 ML VL ONE (09:37)
[2018-10-17] MEDS: MORPHINE SULF INJ 2 MG/ML SYRINGE 1ML IV PRN ×2 (10:05→21:36)
--- NOTE | 2018-10-17 10:15 | NUR ---
PATIENT OFF UNIT FOR PROCEDURE EGD
[2018-10-17] MEDS: MIDAZOLAM HCL 5 MG/ML-1ML VIAL ONE ×2 (10:24→10:29)
[2018-10-17] MEDS: fentaNYL CITRATE 100 MCG/2 ML VL ONE ×2 (10:24→10:29)
--- NOTE | 2018-10-17 11:15 | NUR ---
PATIENT BACK ON UNIT PER REPORT PORTAL HTN GASTROPATHY, ESOPHAGEAL VARICIES BANDING X4, CLEAR LIQUID DIET NOW. PATIENT EASILY AROUSED, ASKING FOR JELLO, NOTIFIED NEED TO WAIT UNTIL VISCOUS LIDOCAINE WEARS OFF, PATIENT STATED WILL SLEEP FOR A LITTLE.
--- NOTE | 2018-10-17 11:20 | NUR ---
DR MARTIN AT BEDSIDE NO NEW ORDERS
--- NOTE | 2018-10-17 11:50 | NUR ---
FAMILY CALL AT BEDSIDE WITH PATIENT CONFIRMED OK TO SHARE INFORMATION WITH PATIENTS SISTER JAY. PER PATIENT CHANGED PASSWORD TO "MOM". UPDATED ON CONDITION AND PLAN OF CARE. WILL CONTINUE TO MONITOR.
[2018-10-17] MEDS: THIAMINE 100mg/ml INJ (200mg/2ml VIAL) IV SCH (12:16)
[2018-10-17] MEDS: PANTOPRAZOLE 40 MG/10 ML VIAL INJ IV SCH (12:16)
[2018-10-17] MEDS: rifAXIMin 550 MG TAB PO SCH ×2 (12:17→21:10)
[2018-10-17] MEDS ORDERED: MAGNESIUM SULFATE 1GM/100ML 100 ML IV ONE (14:15)
[2018-10-17] MEDS ORDERED: PHYTONADIONE (VIT K)10 MG/ML 1ML VIAL SUBCUT ONE (14:15)
[2018-10-17] MEDS: LEVOFLOXACIN 500MG 100 ML IV SCH (17:46)
--- NOTE | 2018-10-17 19:52 | NUR ---
Opening Note Assumed pt care from day shift nurse. Pt is a/ox4 with no s/s of distress or SOB. PT is currently laying in bed with no complaints. Discussed POC with pt and the need to stay on a clear liquid diet; pt verbalized understanding. Safety measures maintained with call light within reach, bed in lowest position and side rails up. Will continue to monitor for changes q1hr and prn.
--- NOTE | 2018-10-18 03:29 | NUR ---
Pt Rounding Upon rounding, pt had an episode of emesis x2; yellow tinged. Pt also had 2 liquid bowel movements that were dark brown in color. Pt complained of some "bubbling" in stomach. Pt stated that he felt "better" after having thrown up as well as a bowel movement. Will continue to monitor for any changes.
[2018-10-18] MEDS: SODIUM CHLORIDE 0.9% 1,000 ML IV SCH (04:08)
[2018-10-18 05:00] VITALS: BP 120/64
[2018-10-18] MEDS: metroNIDAZOLE 500MG/100ML 100 ML IV SCH (05:43)
[2018-10-18] MEDS: LACTULOSE 20Gm/30ML SOLN PO SCH ×4 (05:46→23:27)
--- NOTE | 2018-10-18 05:46 | NUR ---
Pt Refused Lactulose Pt refused morning dose of lactulose. Provided education on importance of medication; pt still refused. Pt stated that he "cannot take that anymore".
[2018-10-18] MEDS: OCTREOTIDE ACETATE 500 MCG in SODIUM CHL 0.9% 99 ML IV SCH ×3 (05:48→06:39)
[2018-10-18] MEDS: ACCU-CHEK COMFORT CURVE STRIP VI SCH ×4 (06:19→21:18)
[2018-10-18] MEDS: InsuLIN REG 1unit/0.01ml Soln (100units/ml) SC SCH ×4 (06:19→21:18)
[2018-10-18 06:59] LABS: Basophils # (auto) 0 uL; Basophils % (auto) 0.5 % (0.0-2.0); Eosinophils # (auto) 0 uL; Hematocrit 30.1 % (41.0-53.0); Hemoglobin 10.4 g/dL (13.5-17.5); Lymphocytes # (auto) 0.4 uL; Monocytes # (auto) 0.3 uL; Neutrophils # (auto) 2.6 uL; Red Blood Cells 2.74 10^6/uL (4.5-5.90); White Blood Cell 3.3 10^3/uL (4.4-10.8)
[2018-10-18 07:03] LABS: INR 1.44 (0.9-1.15)
[2018-10-18 07:05] LABS: Eosinophils % (auto) 0.6 % (0.0-7.0); Lymphocytes % (auto) 11.2 % (10.0-50.0); Mean Corpuscular Hemoglobin 37.9 pg (28.0-32.0); Mean Corpuscular Hgb Conc. 34.6 g/dL (32.0-36.0); Mean Corpuscular Volume 109.6 fL (80.0-100.0); Monocytes % (auto) 9.6 % (0.0-12.0); Neutrophils % (auto) 78.1 % (37.0-80.0); Nucleated Red Blood Cells % 0.4 %; Platelet Count (auto) 73 10^3/uL (140-450); Red Cell Distribution Width 17.1 % (11.8-14.3)
[2018-10-18 07:11] LABS: Albumin 1.9 g/dL (3.4-5.0); Calcium 7.4 mg/dL (8.5-10.1); Magnesium 1.9 mg/dL (1.6-2.6); Potassium 3.8 mmol/L (3.5-5.1)
[2018-10-18 07:14] LABS: BUN/Creatinine Ratio 8.6; Bilirubin, Total 3.8 mg/dL (0.2-1.0); Total Protein 7.4 g/dL (6.4-8.2)
[2018-10-18 08:00] VITALS: BP 151/70
[2018-10-18 09:15] VITALS: BP 151/70
--- NOTE | 2018-10-18 10:45 | NUR ---
PT WENT DOWN FOR PROCEDURE.
[2018-10-18] MEDS: THIAMINE 100mg/ml INJ (200mg/2ml VIAL) IV SCH (11:26)
[2018-10-18] MEDS: rifAXIMin 550 MG TAB PO SCH ×2 (11:26→22:11)
[2018-10-18] MEDS: PANTOPRAZOLE 40 MG/10 ML VIAL INJ IV SCH (11:26)
[2018-10-18] MEDS: MORPHINE SULF INJ 2 MG/ML SYRINGE 1ML IV PRN ×2 (11:45→22:11)
[2018-10-18] MEDS ORDERED: MAGNESIUM SULFATE 1GM/100ML 100 ML IV ONE (12:15)
[2018-10-18] MEDS ORDERED: PHYTONADIONE (VIT K)10 MG/ML 1ML VIAL SUBCUT ONE (12:15)
--- NOTE | 2018-10-18 12:38 | NUR ---
GI DR ACE AT BEDSIDE, STATES DIET CAN BE ADVANCED TO SOLID, STATES OCTREOTIDE CURRENTLY INFUSING WILL BE THE LAST BAG, CONT CARE
[2018-10-18 13:00] VITALS: BP 132/76
--- NOTE | 2018-10-18 13:29 | NUR ---
Estimated needs based on CBW 76.9 kg-Hx cirrhosis, maintenance factors 7676-6292 kcal (25-27 kcal/kg) 82-107 g protein (1.2-1.4 g/kg) Addendum: 10/18/18 at [address] Amended: Links added.
[2018-10-18] MEDS: PROPRANOLOL HCL 20 MG TAB PO SCH ×2 (16:54→22:10)
[2018-10-18 17:15] VITALS: BP 140/75
--- NOTE | 2018-10-18 19:43 | NUR ---
Opening Note Assumed pt care from day shift nurse. Pt is a/ox4 with no s/s of distress or SOB. Pt is currently laying in bed with no complaints. Discussed POC with pt; pt verbalized understanding. Safety measures maintained with call light within reach, bed in lowest position and side rails up. Will continue to monitor for changes q1hr and prn.
--- NOTE | 2018-10-18 19:50 | NUR ---
IV Removal Left hand IV removal. Catheter removed fully intact using clean technique. Pressure applied to site for 30 seconds, gauze and coban applied to site. Instructed pt to keep gauze on for at least 30 minutes; pt verbalized understanding.
[2018-10-18 22:00] VITALS: BP 154/72
[2018-10-19 05:00] VITALS: BP 134/71
[2018-10-19] MEDS: LACTULOSE 20Gm/30ML SOLN PO SCH ×3 (05:05→18:00)
[2018-10-19] MEDS: PROPRANOLOL HCL 20 MG TAB PO SCH ×3 (06:07→22:00)
[2018-10-19] MEDS: InsuLIN REG 1unit/0.01ml Soln (100units/ml) SC SCH ×2 (06:11→11:26)
[2018-10-19] MEDS: ACCU-CHEK COMFORT CURVE STRIP VI SCH ×2 (06:11→11:26)
[2018-10-19 08:00] VITALS: BP 116/62
[2018-10-19 09:00] VITALS: BP 116/68
--- NOTE | 2018-10-19 10:12 | NUR ---
AT BEDSIDE DR MARTIN AT BEDSIDE, DISCUSSING POC WITH PT, CONT CARE
[2018-10-19 10:55] LABS: Basophils # (auto) 0 uL; Basophils % (auto) 0.7 % (0.0-2.0); Eosinophils # (auto) 0.1 uL; Lymphocytes # (auto) 0.9 uL; Monocytes # (auto) 0.4 uL; Neutrophils # (auto) 2.4 uL; Nucleated Red Blood Cells % 0.2 %; White Blood Cell 3.8 10^3/uL (4.4-10.8)
[2018-10-19 10:58] LABS: Eosinophils % (auto) 2.1 % (0.0-7.0); Hematocrit 31.8 % (41.0-53.0); Hemoglobin 11.1 g/dL (13.5-17.5); Lymphocytes % (auto) 24.2 % (10.0-50.0); Mean Corpuscular Hemoglobin 37.9 pg (28.0-32.0); Mean Corpuscular Hgb Conc. 34.7 g/dL (32.0-36.0); Mean Corpuscular Volume 109.1 fL (80.0-100.0); Monocytes % (auto) 10.2 % (0.0-12.0); Neutrophils % (auto) 62.8 % (37.0-80.0); Platelet Count (auto) 88 10^3/uL (140-450); Red Blood Cells 2.92 10^6/uL (4.5-5.90); Red Cell Distribution Width 17.5 % (11.8-14.3)
[2018-10-19] MEDS: THIAMINE 100mg/ml INJ (200mg/2ml VIAL) IV SCH (11:07)
[2018-10-19] MEDS: rifAXIMin 550 MG TAB PO SCH ×2 (11:08→21:32)
[2018-10-19] MEDS: PANTOPRAZOLE 40 MG TAB PO SCH (11:08)
[2018-10-19] MEDS: MORPHINE SULF INJ 2 MG/ML SYRINGE 1ML IV PRN (11:23)
[2018-10-19 11:29] LABS: INR 1.43 (0.9-1.15)
[2018-10-19] MEDS ORDERED: IPRATROPIUM BROM 0.5 MG/2.5ML INH SOL NEB PRN (12:00)
[2018-10-19] MEDS ORDERED: ALBUTEROL SULF 2.5 MG/0.5ML(0.5%) NEB SOLN NEB PRN (12:00)
[2018-10-19] MEDS ORDERED: RIFA550T PO (12:05)
[2018-10-19] MEDS ORDERED: PROP20TA73 PO (12:05)
[2018-10-19] MEDS ORDERED: LACT10SO3 PO (12:05)
[2018-10-19] MEDS ORDERED: LISINOPRIL 10 MG TAB PO ONE (12:15)
[2018-10-19 12:26] VITALS: BP 136/75
--- NOTE | 2018-10-19 15:16 | NUR ---
Received referral to give pt information on ETOH abuse. The pt states that he uses alcohol because of pain in his knees. Pt states he is trying to decide whether to go forward with his knee surgery or not. The pt states he does not drink that much and does not need assistance with substance abuse. Pt will be going to rehab after discharge. Left pt with resources.
[2018-10-19] MEDS: GABAPENTIN 400 MG CAP PO SCH ×2 (15:45→21:32)
[2018-10-19 16:48] VITALS: BP 140/75
--- NOTE | 2018-10-19 16:55 | NUR ---
assessment Patient is a 67 year old male who is alert and oriented. Patients cognitive abilities are intact. Prior to admission patient lived home with family and functioned with assistance. Per patient he has a fww, wheelchair, and cane for home use. Patient has a daily caregiver. I informed patient he has a ss consult for discharge planning and SNF. Patient agrees to SNF placement. I informed patient he has a right to speak to a case management social worker regarding all care. I informed patient he has a right to participate in any and all discharge planning. Patient is aware of visiting hours on the hospital floor. I informed patient he has a right to privacy. Patient does not have a POA and advanced directive. I have offered patient information on POA and advanced directives. I informed the patient the advantages and benefits of having an Advanced Directive. Patient verbalized understanding and agreed to discharge plan to SNF. Addendum: 10/19/18 at 1658 by Mary Lou SCHNEIDER Amended: Links added.
--- NOTE | 2018-10-19 16:57 | NUR ---
Discharge planning per consult received, patient has orders to dc to SNF. Referral faxed to [facility], and they have no beds. [facility]-no beds today, possibly tomorrow. [facility], no beds, possibly tomorrow. Referral also sent to [facility], and [facility] facilities. Acceptance pending. Addendum: 10/19/18 at 1659 by FEROZ HEALY Amended: Links added.
--- NOTE | 2018-10-19 18:07 | NUR ---
DC HELD/NO SNF BED AVAILABILITY SPOKE WITH FEROZ CM, PT UPDATED, CONT CARE
--- NOTE | 2018-10-19 18:56 | NUR ---
PT ON ROOM AIR WITH NO DISTRESS NOTED. SPO2 97% HR 59, RR 18. BS CLEAR. PT EATING SITTING UPRIGHT. NO TX GIVEN AT THIS TIME.
--- NOTE | 2018-10-19 19:30 | NUR ---
Opening Shift Note Received report from bashir Myrick RN. Assumed care of patient, awake and alert. No S/S of distress/SOB or pain. Instructed on POC and to call for assist PRN, will continue to monitor for changes Q1hr and PRN. Bed placed in lowest position, bed alarm turned on and call light within reach.
[2018-10-19 20:00] VITALS: BP 120/61
[2018-10-20] MEDS: LACTULOSE 20Gm/30ML SOLN PO SCH ×3 (01:09→12:27)
[2018-10-20 03:32] VITALS: BP 120/61
[2018-10-20 06:00] VITALS: BP_SYST 120; BP_SYST 123; BP_DIAS 51; BP_DIAS 61
[2018-10-20] MEDS: PROPRANOLOL HCL 20 MG TAB PO SCH ×2 (06:00→14:00)
--- NOTE | 2018-10-20 06:00 | NUR ---
ROUNDS PATIENT IS ALERT AND ORIENTED, NO DISTRESS NOTED AND PATIENT DENIES PAIN.
[2018-10-20 06:35] VITALS: BP 123/51
[2018-10-20] MEDS: GABAPENTIN 400 MG CAP PO SCH ×2 (06:46→15:01)
--- NOTE | 2018-10-20 07:48 | NUR ---
Opening Shift Note Assumed care of patient, awake and alert. No S/S of distress/SOB. Pt complaining of lower abdominal pain. Will medicate per orders Instructed on POC and to call for assist PRN, will continue to monitor for changes Q1hr and PRN.
[2018-10-20 09:00] VITALS: BP 152/67
--- NOTE | 2018-10-20 09:36 | NUR ---
AT BEDSIDE DR MARTIN AT BEDSIDE, DISCUSSING POC INCLUDING DISCHARGE, CONT CARE
[2018-10-20] MEDS ORDERED: LISINOPRIL 10 MG TAB PO SCH (10:00)
[2018-10-20] MEDS ORDERED: THIAMINE HCL 100 MG TAB PO SCH (10:00)
--- NOTE | 2018-10-20 10:17 | NUR ---
Respiratory note: ASSESSED PT FOR PRN MEDNEB TX. HR 63, RR 14, POX 98% ON ROOM AIR. BREATH SOUNDS CLEAR THROUGHOUT. NO S/S OF RESPIRATORY DISTRESS. MEDNEB TX NOT INDICATED AT THIS TIME. ADVISED PT TO CALL FOR RT IF NEEDED.
[2018-10-20] MEDS: PANTOPRAZOLE 40 MG TAB PO SCH (10:50)
[2018-10-20] MEDS: rifAXIMin 550 MG TAB PO SCH (10:52)
--- NOTE | 2018-10-20 11:05 | NUR ---
PAGED MD MENDOZA. AWAITING CALL BACK
--- NOTE | 2018-10-20 11:15 | NUR ---
MD ALVARADO RETURNED PAGE. NEW ORDERS RECEIVED. IMPLEMENTING NEW ORDERS AT THIS TIME.
[2018-10-20] MEDS ORDERED: MORPHINE SULFATE 4 MG/ML SYR/VIAL IV PRN (12:00)
[2018-10-20] MEDS ORDERED: MORPHINE SULF INJ 2 MG/ML SYRINGE 1ML IV PRN (12:15)
[2018-10-20 13:00] VITALS: BP 115/78
[2018-10-20 15:25] VITALS: BP 115/78
--- NOTE | 2018-10-20 15:58 | NUR ---
Discharge planning per consult received. Patient has orders to discharge to SNF. Referral faxed to [facility], received a follow up call from Antoni at [facility] and was advised that patient was accepted under Dr. Dickson, and will be going to room 613 bed A. Transportation will be provided by [facility] via gurney transport at 4pm. Nurse Adia and patient were advised of the discharge plan and all verbalized understanding. Addendum: 10/20/18 at 1602 by FEROZ NIRAJ SS Amended: Links added. Addendum: 10/20/18 at 1749 by FEROZ NIRAJ SS Obtained auth from [facility] for SNF-[id number] and transportation- [id number]
--- NOTE | 2018-10-20 16:45 | NUR ---
Pt being trans to [facility] Order obtained for transfer of GALI OSHEA to [facility]. Report called/given to HARMONY Spencer. Report given to EMS transport team. Medication reconciliation form completed and copy given to patient. Transported via gurney along with copied chart, imaging reports and all personal belongings. No distress noted on time of departure. Family notified of destination and room number, verbalized understanding. IV removed, catheter intact. pressure dressing applied. Tele box removed and sent to ICU.
== END 2018-10-20 16:45 | DRG 280 ==
LOC: ER 15:58 → TELE 15:59 → TELE-EAST 21:28
PROVIDERS: ADMIT Internal Medicine; ATTEND Internal Medicine
PROC: 30233K1 Transfusion of Nonautologous Frozen Plasma into Peripheral Vein, Percutaneous Approach (ICD-10-PCS; 2018-10-15)
PROC: 06L38CZ Occlusion of Esophageal Vein with Extraluminal Device, Via Natural or Artificial Opening Endoscopic (ICD-10-PCS; principal; 2018-10-17 10:20)
DX: K70.30 Alcoholic cirrhosis of liver without ascites (principal); E43 Unspecified severe protein-calorie malnutrition; I85.11 Secondary esophageal varices with bleeding; K76.6 Portal hypertension; D68.9 Coagulation defect, unspecified; D69.6 Thrombocytopenia, unspecified; K72.90 Hepatic failure, unspecified without coma; J44.9 Chronic obstructive pulmonary disease, unspecified; D62 Acute posthemorrhagic anemia; G62.9 Polyneuropathy, unspecified; F10.10 Alcohol abuse, uncomplicated; I10 Essential (primary) hypertension; F41.9 Anxiety disorder, unspecified; E78.5 Hyperlipidemia, unspecified; K31.89 Other diseases of stomach and duodenum; H40.9 Unspecified glaucoma; D75.89 Other specified diseases of blood and blood-forming organs; E11.9 Type 2 diabetes mellitus without complications; F12.90 Cannabis use, unspecified, uncomplicated; F17.210 Nicotine dependence, cigarettes, uncomplicated; Z87.11 Personal history of peptic ulcer disease; N40.0 Benign prostatic hyperplasia without lower urinary tract symptoms; K57.30 Diverticulosis of large intestine without perforation or abscess without bleeding; K44.9 Diaphragmatic hernia without obstruction or gangrene; I70.8 Atherosclerosis of other arteries; Z90.89 Acquired absence of other organs; Z84.89 Family history of other specified conditions; Z83.518 Family history of other specified eye disorder; Z79.899 Other long term (current) drug therapy
CPT/HCPCS: 36415; 36430; 43244; 71045; 74176; 80053; 80307; 81001; 82140; 82247; 82962; 83036; 83690; 83735; 85007; 85014; 85018; 85025; 85027; 85045; 85610; 85730; 86850; 86900; 86901; 96361; 96365; 96375; C9113; G0378; J1815; J1956; J2250; J2405; J3430; J3490

== ENCOUNTER 2019-07-24 13:48 | Inpatient (IN) | payer MEDICARE, MEDICAID ==
[~2019-07-24] VITALS: Ht 177.8 cm; Wt 67.0 kg
[~2019-07-24 13:48] MED LIST changes: +LACT10SO3 PO; -LACT10SO70 PO; -METO25TA62 PO; +METO25TA93 PO; +PROP20TA73 PO; +RIFA550T PO
[2019-07-24] MEDS ORDERED: SODIUM CHLORIDE 0.9% 1,000 ML IVB ONE (15:30)
[2019-07-24 15:36] LABS: Eosinophils # (auto) 0.1 10 ^3/uL (0-0.8); Hemoglobin 8.2 g/dL (13.5-17.5); White Blood Cell 5.5 10^3/uL (4.4-10.8)
[2019-07-24 15:38] LABS: Basophils # (auto) 0.1 10 ^3/uL (0-0.2); Eosinophils % (auto) 1.5 % (0.0-7.0); Hematocrit 26.7 % (41.0-53.0); Lymphocytes % (auto) 18.8 % (10.0-50.0); Mean Corpuscular Hemoglobin 26.7 pg (28.0-32.0); Mean Corpuscular Hgb Conc. 30.5 g/dL (32.0-36.0); Mean Corpuscular Volume 87.5 fL (80.0-100.0); Monocytes # (auto) 0.6 10 ^3/uL (0-1.3); Monocytes % (auto) 11.2 % (0.0-12.0); Neutrophils # (auto) 3.7 10 ^3/uL (1.6-8.6); Neutrophils % (auto) 67.5 % (37.0-80.0); Nucleated Red Blood Cells % 0.3 %; Platelet Count (auto) 121 10^3/uL (140-450); Red Blood Cells 3.06 10^6/uL (4.5-5.90); Red Cell Distribution Width 23.5 % (11.8-14.3)
[2019-07-24 15:47] LABS: INR 1.53 (0.9-1.15); Partial Thromboplastin Time 35.2 sec (23.64-32.05)
[2019-07-24 15:51] LABS: Albumin 1.5 g/dL (3.4-5.0); Anion Gap 8 (5-15); Blood Urea Nitrogen 5 mg/dL (7-18); Calcium 8.7 mg/dL (8.5-10.1); Carbon Dioxide 22 mmol/L (21-32); Chloride 104 mmol/L (98-107); Glucose 148 mg/dL (74-106); Sodium 134 mmol/L (136-145)
[2019-07-24 16:00] LABS: Alanine Aminotransferase 14 U/L (16-61); Alkaline Phosphatase 101 U/L (45-117); Aspartate Aminotransferase 39 U/L (15-37); BUN/Creatinine Ratio 6.3; Bilirubin, Total 1.5 mg/dL (0.2-1.0); GFR African American 126 mL/min; GFR Non-African American 104 mL/min
[2019-07-24] MEDS ORDERED: POTASSIUM CHL 20 Meq TABLET PO ONE (16:30)
[2019-07-24 16:47] LABS: Magnesium 1.7 mg/dL (1.6-2.6)
[2019-07-24] MEDS ORDERED: POTASSIUM EFFERVESENT TAB 25 MEQ PO ONE (17:45)
[2019-07-24] MEDS ORDERED: MORPHINE SULF INJ 2 MG/ML SYRINGE 1ML IV PRN (17:45)
[2019-07-24] MEDS ORDERED: LACTULOSE 20Gm/30ML SOLN PO ONE (17:45)
[2019-07-24] MEDS ORDERED: NITROGLYCERIN 0.4 MG SL TAB SL PRN (17:45)
[2019-07-24] MEDS ORDERED: metroNIDAZOLE 500 MG TAB PO ONE (18:45)
[2019-07-24] MEDS ORDERED: phytonadione 10 MG in SODIUM CHL 0.9% 50 ML IV ONE ×2 (19:15→21:30)
[2019-07-24] MEDS ORDERED: chlordiazePOXIDE HCL 25 MG CAP PO PRN (19:15)
[2019-07-24] MEDS ORDERED: THIAMINE 100mg/ml INJ (200mg/2ml VIAL) IV ONE (19:15)
[2019-07-24 21:07] VITALS: BP 145/69
[2019-07-24 21:15] VITALS: BP 145/69
[2019-07-24] MEDS ORDERED: phytonadione 1 ML ONE (21:16)
[2019-07-24] MEDS: CIPROFLOXACIN HCL 500 MG TAB PO SCH (21:21)
[2019-07-24] MEDS: metroNIDAZOLE 500 MG TAB PO SCH (21:22)
[2019-07-24] MEDS ORDERED: GLIP5TAB12 PO (21:41)
[2019-07-24 22:00] VITALS: BP 132/70
[2019-07-24] MEDS: PANTOPRAZOLE 40 MG TAB PO SCH (22:51)
[2019-07-24 23:38] VITALS: BP 134/63
[2019-07-25] VITALS (7 sets, daily range): BP systolic 118–141; BP diastolic 56–76
[2019-07-25 03:11] LABS: Urine Bacteria MANY /hpf (None Seen); Urine Blood Negative /uL (Negative); Urine Specific Gravity 1.009 (1.001-1.035); Urine WBC 53 /hpf (0 - 3)
[2019-07-25 03:18] LABS: Hematocrit 25.6 % (41.0-53.0)
[2019-07-25] MEDS: metroNIDAZOLE 500 MG TAB PO SCH ×3 (03:30→18:24)
[2019-07-25] MEDS: CIPROFLOXACIN HCL 500 MG TAB PO SCH ×2 (06:04→18:24)
[2019-07-25] MEDS: LACTULOSE 20Gm/30ML SOLN PO SCH ×4 (06:04→18:24)
[2019-07-25 06:05] LABS: Hematocrit 24.8 % (41.0-53.0)
[2019-07-25] MEDS: THIAMINE 100mg/ml INJ (200mg/2ml VIAL) IV SCH (09:15)
[2019-07-25] MEDS: PANTOPRAZOLE 40 MG TAB PO SCH ×2 (09:15→21:22)
[2019-07-25 12:06] LABS: Hematocrit 25.8 % (41.0-53.0); Hemoglobin 8.3 g/dL (13.5-17.5)
[2019-07-25] MEDS ORDERED: DEXTROSE (50%) 50ML SYRG IV PRN (12:15)
[2019-07-25] MEDS: InsuLIN REG 1unit/0.01ml Soln (100units/ml) SC SCH ×2 (17:00→21:26)
[2019-07-25] MEDS: ACCU-CHEK COMFORT CURVE STRIP VI SCH ×2 (17:20→21:26)
[2019-07-25] MEDS: Glucerna Carbsteady SHAKE Vanilla 8oz PO SCH ×2 (18:25→21:23)
[2019-07-25] MEDS: OXYCODONE W/ ACETAMINOPHEN 5/325MG TABLET PO PRN (18:45)
[2019-07-26] MEDS: LACTULOSE 20Gm/30ML SOLN PO SCH ×5 (00:45→23:51)
[2019-07-26] MEDS: metroNIDAZOLE 500 MG TAB PO SCH ×3 (02:24→18:33)
[2019-07-26 05:00] VITALS: BP 139/77
[2019-07-26 05:35] LABS: Basophils # (auto) 0 10 ^3/uL (0-0.2); Basophils % (auto) 0.7 % (0.0-2.0); Monocytes # (auto) 0.8 10 ^3/uL (0-1.3); Neutrophils # (auto) 3.3 10 ^3/uL (1.6-8.6); Platelet Count (auto) 127 10^3/uL (140-450); White Blood Cell 5.6 10^3/uL (4.4-10.8)
[2019-07-26 05:37] LABS: Eosinophils # (auto) 0.1 10 ^3/uL (0-0.8); Eosinophils % (auto) 2.5 % (0.0-7.0); Hematocrit 24.1 % (41.0-53.0); Hemoglobin 7.6 g/dL (13.5-17.5); Lymphocytes # (auto) 1.3 10 ^3/uL (0.4-5.4); Lymphocytes % (auto) 23.4 % (10.0-50.0); Mean Corpuscular Hemoglobin 26.4 pg (28.0-32.0); Mean Corpuscular Hgb Conc. 31.6 g/dL (32.0-36.0); Mean Corpuscular Volume 83.4 fL (80.0-100.0); Monocytes % (auto) 14.7 % (0.0-12.0); Neutrophils % (auto) 58.7 % (37.0-80.0); Nucleated Red Blood Cells % 0.2 %; Red Blood Cells 2.88 10^6/uL (4.5-5.90)
[2019-07-26 05:44] LABS: BUN/Creatinine Ratio 5.4; Calcium 8.9 mg/dL (8.5-10.1)
[2019-07-26] MEDS: CIPROFLOXACIN HCL 500 MG TAB PO SCH ×2 (05:49→18:33)
[2019-07-26] MEDS: Glucerna Carbsteady SHAKE Vanilla 8oz PO SCH ×4 (05:50→21:42)
[2019-07-26] MEDS: ACCU-CHEK COMFORT CURVE STRIP VI SCH ×4 (06:21→21:41)
[2019-07-26] MEDS: InsuLIN REG 1unit/0.01ml Soln (100units/ml) SC SCH ×4 (06:21→21:41)
[2019-07-26] MEDS ORDERED: POTASSIUM EFFERVESENT TAB 25 MEQ PO ONE (09:15)
[2019-07-26 09:58] VITALS: BP 132/71
[2019-07-26] MEDS: PANTOPRAZOLE 40 MG TAB PO SCH ×2 (10:12→21:36)
[2019-07-26] MEDS: THIAMINE 100mg/ml INJ (200mg/2ml VIAL) IV SCH (10:13)
[2019-07-26 13:00] VITALS: BP 156/74
[2019-07-26 17:00] VITALS: BP 122/62
[2019-07-26 18:06] LABS: Hematocrit 24.5 % (41.0-53.0); Hemoglobin 7.6 g/dL (13.5-17.5)
[2019-07-26] MEDS: OXYCODONE W/ ACETAMINOPHEN 5/325MG TABLET PO PRN (21:41)
[2019-07-26 22:00] VITALS: BP 135/73
[2019-07-27] MEDS: metroNIDAZOLE 500 MG TAB PO SCH ×4 (02:35→23:01)
[2019-07-27 05:00] VITALS: BP 151/74
[2019-07-27] MEDS: CIPROFLOXACIN HCL 500 MG TAB PO SCH ×3 (05:30→23:01)
[2019-07-27] MEDS: LACTULOSE 20Gm/30ML SOLN PO SCH ×4 (05:30→23:00)
[2019-07-27 05:42] LABS: Hemoglobin 7.7 g/dL (13.5-17.5)
[2019-07-27 05:44] LABS: Hematocrit 24.3 % (41.0-53.0); Mean Corpuscular Hemoglobin 26.3 pg (28.0-32.0); Mean Corpuscular Hgb Conc. 31.5 g/dL (32.0-36.0); Mean Corpuscular Volume 83.4 fL (80.0-100.0); Platelet Count (auto) 121 10^3/uL (140-450); Red Blood Cells 2.91 10^6/uL (4.5-5.90); White Blood Cell 5.4 10^3/uL (4.4-10.8)
[2019-07-27] MEDS: Glucerna Carbsteady SHAKE Vanilla 8oz PO SCH ×5 (06:00→23:01)
[2019-07-27 06:05] LABS: Potassium 3.3 mmol/L (3.5-5.1)
[2019-07-27] MEDS: ACCU-CHEK COMFORT CURVE STRIP VI SCH ×5 (06:10→23:01)
[2019-07-27] MEDS: InsuLIN REG 1unit/0.01ml Soln (100units/ml) SC SCH ×5 (06:10→23:01)
[2019-07-27 06:14] LABS: BUN/Creatinine Ratio 7.1; Calcium 8.8 mg/dL (8.5-10.1)
[2019-07-27 06:59] LABS: Red Cell Distribution Width 23.2 % (11.8-14.3)
[2019-07-27 07:01] LABS: Basophils % (manual) 0 (0.0-2.0); Blast Cells 0; Metamyelocytes % 0; Myelocytes % 0; Promyelocytes % 0; Reactive Lymphocytes 0
[2019-07-27 07:49] LABS: Band Neutrophils % (manual) 3; Eosinophils % (manual) 1 (0-7); Lymphocytes % (manual) 13 (10.0-50.0); Monocytes % (manual) 7 (0-12)
[2019-07-27 08:00] VITALS: BP 127/67
[2019-07-27] MEDS: PANTOPRAZOLE 40 MG TAB PO SCH ×2 (10:35→21:35)
[2019-07-27] MEDS: THIAMINE 100mg/ml INJ (200mg/2ml VIAL) IV SCH (10:35)
[2019-07-27 12:00] VITALS: BP 143/71
[2019-07-27 16:11] VITALS: BP 143/71
[2019-07-27 17:00] VITALS: BP 135/69
== END 2019-07-28 00:40 | disposition home or self-care (01) | DRG 279 ==
LOC: EDBD 13:48 → ER 13:48 → TELE 13:49 → TELE-CENTR 20:05
PROVIDERS: ADMIT Internal Medicine; ATTEND Internal Medicine
DX: K72.90 Hepatic failure, unspecified without coma (principal); R65.11 Systemic inflammatory response syndrome (SIRS) of non-infectious origin with acute organ dysfunction; E43 Unspecified severe protein-calorie malnutrition; E87.0 Hyperosmolality and hypernatremia; D68.9 Coagulation defect, unspecified; J44.9 Chronic obstructive pulmonary disease, unspecified; E87.1 Hypo-osmolality and hyponatremia; D64.9 Anemia, unspecified; E11.9 Type 2 diabetes mellitus without complications; N39.0 Urinary tract infection, site not specified; R62.7 Adult failure to thrive; I10 Essential (primary) hypertension; E78.5 Hyperlipidemia, unspecified; E87.6 Hypokalemia; F17.210 Nicotine dependence, cigarettes, uncomplicated; G89.29 Other chronic pain; F32.9 Major depressive disorder, single episode, unspecified; M54.5 Low back pain; M25.569 Pain in unspecified knee; Z87.11 Personal history of peptic ulcer disease; Z79.899 Other long term (current) drug therapy; Z79.51 Long term (current) use of inhaled steroids; Z68.21 Body mass index [BMI] 21.0-21.9, adult; Z80.6 Family history of leukemia; Z83.511 Family history of glaucoma; K74.60 Unspecified cirrhosis of liver
CPT/HCPCS: 36415; 71046; 80048; 80053; 81001; 82140; 82270; 82962; 83036; 83690; 83735; 84443; 84484; 85007; 85014; 85018; 85025; 85027; 85045; 85610; 85730; 86850; 86900; 86901; 87086; 93005; 97116; 97530; G0378; J3430